=== PATIENT | female | born 1980 | race Caucasian/White ===

== ENCOUNTER 2016-12-17 22:21 | Emergency (ER) | payer OTHER ==
[~2016-12-17] VITALS: Ht 152.4 cm; Wt 109.1 kg
[2016-12-17 22:25] VITALS: BP 136/92; PULSE 95; RESP 16; O2SAT 97
[2016-12-17 23:18] VITALS: BP 149/88; PULSE 92; RESP 14; O2SAT 98
--- NOTE | 2016-12-18 00:06 | ED.REPORT ---
HPI-General Illness Date of Service Dec 18, 2016 ED Provider: Dr. Shahbaz Mart M.D. The patient is a healthy 36 year old female who presents to the ED reporting palpitations described as "heart racing" onset gradually this afternoon. Associated symptoms include lightheadedness, shortness of breath, chest tightness, generalized paresthesias, and sore throat. The patient denies nausea , vomiting, diarrhea, cough, or other symptoms. She has never had similar symptoms in the past. The patient denies excessive caffeine use. Nursing Notes Stated Complaint: HEART RACING Chief Complaint: General Complaint Nursing Notes Reviewed: Yes Allergies: Uncoded Allergies: SULFA (Allergy, Mild, LIPS SWOLLEN AND HIVES, 12/17/16) General Time Seen by MD: 00:06 Chief Complaint Other (Palpitations) Hx Obtained From: Patient Arrived By: Walk-in Sudden in Onset?: Yes Onset Occurred: 5 - 8 hours ago Symptom Duration: Since onset Location: : Chest Quality: Painful (Tightness) Severity: Current: Moderate Severity: Maximum: Moderate Pertinent Negative: Relieved by nothing Recent Healthcare: No recent doctor visit Similar Sx Previous: No Past Medical History Past Medical History None reported Past Surgical History None reported Smoking History Unknown if Ever Smoker Social History Other Social History: Good social support Ambulatory Status Independent Review of Systems + Generalized paresthesias Full Review of Systems Constitutional: Denies: Fever Ears / Nose / Throat: Reports: Sore throat Respiratory: Reports: Shortness of breath, Denies: Non-productive cough Cardiovascular: Reports: Chest pain (Tightness), Palpitations (Described as "heart racing") GI: Denies: Diarrhea, Nausea, Vomiting Neurologic: Reports: Lightheaded Complete sys rev & neg: except as marked. Physical Exam Vital Signs Vital Signs Date Time Temp Pulse Resp B/P Pulse Ox O2 Delivery O2 Flow Rate FiO2 12/18/16 03:46 83 17 132/74 97 Room Air 12/17/16 23:18 92 14 149/88 98 Room Air 12/17/16 22:25 37.5 95 16 136/92 97 Room Air Initial VS: Reviewed Head / Eyes: Atraumatic, Normocephalic ENT: Conjunctiva normal, No scleral icterus Skin: Warm, Dry, No cyanosis Neurologic: Alert, Oriented, Nonfocal Psychiatric: Mood/affect normal, Behavior normal, Normal thought content General/Constitutional: Awake, Alert, No acute distress Behavior: Positive: Anxious Appearance / Presentation: Positive: Obese, morbidly Neck: Supple, Full range of motion, No JVD Respiratory / Chest: Breath sounds NL, Breath sounds = bilat, No respiratory distress Cardiovascular: Heart rate NL, Regular rhythm, Heart sounds NL, No gallop, No murmurs, No rubs Interpretation & Diagnostics URINE : Negative Lab Results Interpretation Result Diagram: 12/18/16 0128 12/18/16 0128 Test 12/18/16 01:28 White Blood Count 9.0th/mm3 (3.8-10.1) Red Blood Count 4.54mil/mm3 (3.90-5.20) Hemoglobin 13.0g/dL (12.0-15.6) Hematocrit 38.3% (35.0-46.0) Mean Corpuscular Volume 84.4fL (81-100) Mean Corpuscular Hemoglobin 28.6pg (27.0-35.0) Mean Corpuscular Hemoglobin Concent 33.9% (32.0-37.0) Red Cell Distribution Width 13.9% (12.3-15.4) Platelet Count 326bil/L (150-400) Neutrophils (%) (Auto) 73.6% (40-74) Lymphocytes (%) (Auto) 17.2% (14-46) Monocytes (%) (Auto) 8.2% (4-12) Eosinophils (%) (Auto) 0.4% (0-5) Basophils (%) (Auto) 0.3% (0-3) Prothrombin Time 10.1sec (8.1-12.5) Prothromb Time International Ratio 0.95ratio Activated Partial Thromboplast Time 30.5sec (22.8-33.0) D-Dimer < 0.50mg/L FEU (<0.50) Hold Urine Received (Received) Sodium Level 138mEq/L (134-144) Potassium Level 3.6mEq/L (3.5-5.2) Chloride Level 102mEq/L (97-108) Carbon Dioxide Level 20mmol/L (18-29) Blood Urea Nitrogen 11mg/dL (6-20) Creatinine 0.81mg/dL (0.57-1.00) Estimat Glomerular Filtration Rate 115mL/min (>59) Glucose Level 89mg/dL (60-99) Calcium Level 8.9mg/dL (8.5-10.1) Magnesium Level 1.9mg/dL (1.6-2.6) Total Bilirubin 0.2mg/dL (0.0-1.2) Aspartate Amino Transf (AST/SGOT) 21U/L (0-50) Alanine Aminotransferase (ALT/SGPT) 24U/L (0-32) Alkaline Phosphatase 92U/L (25-150) Pro-B-Type Natriuretic Peptide 99.20pg/mL (0-130) Total Protein 7.3g/dL (6.4-8.4) Albumin 3.7g/dL (3.4-5.0) Thyroid Stimulating Hormone (TSH) 3.710uIU/mL (0.450-4.500) Free Thyroxine 0.89ng/dL (0.82-1.77) Hold Delaney Top Tube Received (Received) ECG Interpretation ECG Interpretation: Sinus rhythm rate 73 Low voltage, precordial leads Time: 00:28 Interpreted by: ED physician X-Ray Chest Interpretation Chest Xray Interpretation: Negative View: Portable, 1 view Interpretation / Wet Read by: Wet read ED physician Re-Eval/Medical Decision Med Decision/Clinical Course Palpitations new-onset and resolved in a 36-year-old female. Sinus rhythm the only rhythm observed here. Labs are unremarkable. Discharged home for follow-up with PCP. Consider Holter if symptoms are recurrent and persistent. Time of Eval: 03:27 Patient Status: Condition improved Re-Evaluation/Progress Note: Discussed with patient lab and x-ray results, diagnosis, and plan for discharge. Follow-up and return to the ER instructions given. Patient agrees with plan for care and all questions were addressed. Counseled Regarding: Diagnosis, Lab results, Need for follow-up, When/why to return to ED Discharge & Departure Primary Impression: Palpitations Additional Impression: Hyperventilation Disposition: Home Discharge Condition All VS Reviewed: Yes Condition: Improved Patient Instructions: Heart Palpitations (ED), Hyperventilation (ED) Additional Instructions: We have not seen any evidence of cardiac abnormality, and her labs are unremarkable. There is no evidence of clot or other dangerous cause. Follow-up with your doctor the office. Return if any repetitive, prolonged episodes over the weekend. Referrals: OTHER,PHYSICIAN (PCP) Scribe Attestation Portions of this note were transcribed by Maegan Song. I, Dr. Mart, personally performed the history, physical exam, and medical decision-making; I reviewed and confirmed the accuracy of the information in the transcribed note. Signed by: Veronique Aguila, 12/18/2016, 04:10 Shahbaz Mart MD Dec 18, 2016 00:06 MAEGAN SONG Dec 18, 2016 00:18
[2016-12-18 01:38] LABS: BASOPHILS % (AUTO) 0.3 % (0-3); EOSINOPHILS % (AUTO) 0.4 % (0-5); MONOCYTES % (AUTO) 8.2 % (4-12); Mean Corpuscular Hemoglobin 28.6 pg (27.0-35.0); Mean Corpuscular Volume 84.4 fL (81-100); NEUTROPHILS % (AUTO) 73.6 % (40-74); Platelet Count 326 bil/L (150-400)
[2016-12-18 02:00] LABS: D-Dimer < 0.50 mg/L FEU (<0.50); INR 0.95 ratio
[2016-12-18 02:26] LABS: Magnesium 1.9 mg/dL (1.6-2.6)
[2016-12-18 03:46] VITALS: BP 132/74; PULSE 83; RESP 17; O2SAT 97
--- NOTE | 2016-12-18 07:26 | DRSVH ---
PROCEDURE: X-RAY CHEST ONE VIEW, PORTABLE ([id number]) INDICATIONS: 36-year-old female with palpitations. TECHNIQUE: One view of the chest was acquired. COMPARISON: None. FINDINGS: Surgical changes and devices: None. Lungs and pleura: No pleural effusions or pneumothorax. Lungs are clear. Mediastinum: Mediastinal contours appear normal. Heart size is normal. Bones and chest wall: No suspicious bony lesions. Overlying soft tissues appear unremarkable. IMPRESSION: No acute cardiopulmonary disease. Dictated by: Davide Davey M.D. on 12/18/2016 at 7:24 Approved by: Davide Davey M.D. on 12/18/2016 at 7:24
== END 2016-12-18 03:49 | disposition home or self-care (01) ==
LOC: SED 22:21
DX: R00.2 Palpitations (principal); R06.4 Hyperventilation; J02.9 Acute pharyngitis, unspecified; Z88.2 Allergy status to sulfonamides